=== PATIENT | male | born 1990 | race Caucasian/White ===

== ENCOUNTER 2019-11-27 15:32 | Emergency (ER) | payer SELFPAY ==
[~2019-11-27] VITALS: Ht 180.3 cm; Wt 89.8 kg
[2019-11-27 15:39] VITALS: BP 125/74; Ht 180.3 cm; Wt 89.8 kg
== END 2019-11-27 15:50 | disposition home or self-care (01) ==
LOC: ED 15:32
DX: K08.89 Other specified disorders of teeth and supporting structures (principal)